=== PATIENT | male | born 1995 | race Caucasian/White ===

== ENCOUNTER 2019-12-24 20:05 | Emergency (ER) | payer OTHER ==
[~2019-12-24] VITALS: Ht 180.3 cm; Wt 93.0 kg
[2019-12-24] MEDS ORDERED: GLYCOPYRROLATE2 MG (20:18)
== END 2019-12-24 22:49 | disposition home or self-care (01) ==
LOC: ER 20:05
DX: J06.9 Acute upper respiratory infection, unspecified (principal)